=== PATIENT | male | born 2000 | race Caucasian/White ===

== ENCOUNTER → 2020-12-31 | Emergency (ER) | payer OTHER ==
[~2020-12-31] VITALS: Ht 182.9 cm; Wt 72.6 kg
== END | disposition designated cancer center or children's hospital (05) ==
LOC: ER 21:56
DX: S01.521A Laceration with foreign body of lip, initial encounter (principal); Y08.89XA Assault by other specified means, initial encounter; Y93.89 Activity, other specified; Y92.89 Other specified places as the place of occurrence of the external cause; Y99.8 Other external cause status; Z11.52 Encounter for screening for COVID-19